=== PATIENT | male | born 1995 | race Caucasian/White ===

== ENCOUNTER 2017-05-07 07:25 | Emergency (ER) | payer OTHER ==
[2017-05-07 07:30] VITALS: BP 123/84; PULSE 61; RESP 16; TEMP 97.9; O2SAT 96
--- NOTE | 2017-05-07 08:33 | EDPHY ---
H & P Time Seen by Provider: 05/07/17 08:06 HPI/ROS: CHIEF COMPLAINT: medication refill HISTORY OF PRESENT ILLNESS: 21-year-old otherwise healthy male presents to the emergency department with his mother requesting a refill of his pain medications. Patient had a rhinoplasty and septoplasty 4 days ago at an outside hospital in [place]. He was given a prescription for 5 mg oxycodone that he ran out of yesterday. The patient has not been taking any ibuprofen or acetaminophen on top of this. He denies fevers, chills, bleeding, nausea or vomiting. He has an appointment with his surgeon in 4 days. Smoking Status: Never smoked Physical Exam: GEN: Awake, alert, oriented, no acute distress HEENT: Nasal splint in place, no septal hematoma, no bleeding RESP: nl resp effort MSK: Normal appearing SKIN: Normal appearing Constitutional: Initial Vital Signs Temperature (C) 36.6 C 05/07/17 07:26 Heart Rate 61 05/07/17 07:26 Respiratory Rate 16 05/07/17 07:26 Blood Pressure 123/84 H 05/07/17 07:26 O2 Sat (%) 96 05/07/17 07:26 O2 Delivery Mode Room Air Allergies/Adverse Reactions: No Known Allergies Allergy (Unverified 05/07/17 07:30) Home Medications: Medication Instructions Recorded LORazepam [Ativan (*)] 1 mg PO 05/07/17 oxyCODONE IR [Oxycodone Ir (*)] 5 mg PO 05/07/17 oxyCODONE IR [Oxycodone Ir (*)] 5 mg PO Q4-6PRN PRN #12 tab 05/07/17 MDM/Departure - Depart Disposition: Home, Routine, Self-Care Clinical Impression: Medication refill Condition: Good Instructions: Oxycodone, Rapid Release (By mouth) Additional Instructions: Take 600mg of ibuprofen every 8 hours with food. You can also take 650mg of Tylenol every 8 hours. Alternate these every 4 hours. Take 5mg of oxycodone every 4 hours as needed for severe pain. Only take the oxycodone if needed and for the shortest duration possible. Follow up with your surgeon as scheduled. I would follow the following medication schedule- 9am- 600mg ibuprofen (advil, motrin) 1pm- 650mg acetaminophen (tylenol) 5pm- 600mg ibuprofen 9pm- 650mg acetaminophen Take the above on a schedule then add the oxycodone IF NEEDED. Prescriptions: oxyCODONE IR [Oxycodone Ir (*)] 5 mg PO Q4-6PRN PRN #12 tab PRN Reason: Pain, Severe Referrals: GURDEEP ROGERS [Other] - Follow Up Only If Needed
== END 2017-05-07 08:41 | disposition home or self-care (01) ==
DX: Z76.0 Encounter for issue of repeat prescription (principal)

== ENCOUNTER 2018-10-15 16:13 | Emergency (ER) | payer OTHER ==
--- NOTE | 2018-10-15 16:26 | EDPHY ---
H & P Time Seen by Provider: 10/15/18 16:25 HPI/ROS: CHIEF COMPLAINT: Chest pain palpitations x1 month HISTORY OF PRESENT ILLNESS: 22-year-old male via private vehicle complaining of chest pain, palpitations, dyspnea for the past 1 month. History of anxiety for which he is on Lexapro which he has been off over for 1 week but has refilled prescription picked up earlier today. He used cocaine over [place] but none recently. He is concerned because his father of an [place] at age 51. The patient denies: Chest pain with exertion, dyspnea with exertion, syncope or new CR syncope, hemoptysis, immobilization, surgery with past 4 weeks, bilateral or unilateral leg swelling REVIEW OF SYSTEMS: 10 systems reviewed and negative with the exception of the elements mentioned in the history of present illness PAST MEDICAL & SURGICAL HISTORY: anxiety SOCIAL HISTORY:cocaine use over 2018 however none since. No tobacco abuse. FAMILY HISTORY: father of [place] at age 51 PHYSICAL EXAM (Prior to examination, patient consented to physical exam, hands were washed and my usual and customary physical exam procedures followed) 1) GENERAL: Well-developed, well-nourished, alert and oriented. Appears anxious. 2) HEAD: Normocephalic, atraumatic 3) HEENT: Pupils equal, round, reactive to light bilaterally. Sclera anicteric. Nasopharynx, oropharynx, clear, no lesions. Moist Mucous membranes. 4) NECK: Full range of motion, no meningeal signs. 5) LUNGS: Clear auscultation bilaterally, no wheezes, no rhonchi, no retractions. Chest wall nontender 6) HEART: Regular rate and rhythm, no murmur, no heave, no gallop. 7) ABDOMEN: No guarding, no rebound, no focal tenderness, negative McBurney's, negative Hines's, negative Rovsing's, negative peritoneal sign, negative Homans no palpable cord 8) MUSCULOSKELETAL: Moving all extremities, no focal areas of tenderness, no obvious trauma. No peripheral edema or discoloration. 9) BACK: No CVA tenderness, no midline vertebral tenderness, no fluctuance, no step-off, no obvious trauma, no visual or palpable abnormality. 10) SKIN: No rash, no petechiae. 11) Psychiatric: Patient is oriented X 3, there is no agitation. DIFFERENTIAL DIAGNOSIS: In no particular order, including but not limited to myocardial ischemia, pulmonary embolus, chest wall pain, pleural inflammation and pulmonary infectious causes. - Medical/Surgical History Other PMH: anxiety - Social History Smoking Status: Never smoked Constitutional: Initial Vital Signs Temperature (C) 36.8 C 10/15/18 16:26 Heart Rate 104 H 10/15/18 16:26 Respiratory Rate 16 10/15/18 16:26 Blood Pressure 149/81 H 10/15/18 16:26 O2 Sat (%) 96 10/15/18 16:26 O2 Delivery Mode Room Air Allergies/Adverse Reactions: No Known Allergies Allergy (Unverified 05/07/17 07:30) Home Medications: Medication Instructions Recorded Clonazepam 10/15/18 Lexapro 10/15/18 Propranolol HCl 10/15/18 clonazePAM [Clonazepam] 0.5 mg PO Q8 PRN #5 tablet 10/15/18 Medical Decision Making - Diagnostics Imaging Results: Imaging Impressions Chest X-Ray 10/15/18 16:34 Impression: No acute findings in the chest. Images reviewed myself ED Course/Re-evaluation: 4:35 p.m.: Will obtain diagnostic studies including D-dimer as the patient has a non negative perc score (he is tachycardic at 1:06 a.m.). 5:20 p.m.: Patient receiving IV fluids, noted to have an elevated BUN creatinine ratio of 29. No nausea or vomiting. Awaiting further diagnostic results. 5:39 p.m.: Patient re-evaluated by myself at this time. Discussed his diagnostic results, negative D-dimer which I think adequately excludes pulmonary embolus in this patient with a moderate pretest suspicion. I Do not think that CT angiography indicated at this time. In addition, patient has a low risk heart pathway score. Doubt TX. Plan will be discharge. Today is Monday. He has an appoint with his psychiatrist on Monday, requests 2 day refill of his clonazepam 0.5 mg which I provided to him and recommended he discuss any further refills with his psychiatrist. Feels comfortable being discharged. Given my usual and customary discharge precautions instructions. Care of patient under supervision of secondary supervising physician Dr Wade . - Data Points Laboratory Results: Laboratory Results 10/15/18 16:45 10/15/18 16:45 10/15/18 10/15/18 10/15/18 16:50 16:45 16:45 WBC RBC Hgb Hct MCV MCH MCHC RDW Plt Count MPV Neut % (Auto) Lymph % (Auto) Major % (Auto) Eos % (Auto) Baso % (Auto) Nucleat RBC Rel Count Absolute Neuts (auto) Absolute Lymphs (auto) Absolute Monos (auto) Absolute Eos (auto) Absolute Basos (auto) Absolute Nucleated RBC Immature Gran % Immature Gran # D-Dimer < 0.27 ug/mLFEU ug/mLFEU (0.00-0.50) Sodium 137 mEq/L mEq/L (135-145) Potassium 4.3 mEq/L mEq/L (3.5-5.2) Chloride 104 mEq/L mEq/L (97-110) Carbon Dioxide 24 mEq/l mEq/l (22-31) Anion Gap 9 mEq/L mEq/L (6-14) BUN 29 mg/dL H mg/dL (7-23) Creatinine 1.0 mg/dL mg/dL (0.7-1.3) Estimated GFR > 60 Glucose 93 mg/dL mg/dL (70-100) Calcium 9.5 mg/dL mg/dL (8.5-10.4) POC Troponin I 0.00 ng/mL ng/mL (0.00-0.08) 10/15/18 16:45 WBC 6.00 10^3/uL 10^3/uL (3.80-9.50) RBC 5.44 10^6/uL 10^6/uL (4.40-6.38) Hgb 16.9 g/dL g/dL (13.7-17.5) Hct 47.8 % % (40.0-51.0) MCV 87.9 fL fL (81.5-99.8) MCH 31.1 pg pg (27.9-34.1) MCHC 35.4 g/dL g/dL (32.4-36.7) RDW 12.2 % % (11.5-15.2) Plt Count 202 10^3/uL 10^3/uL (150-400) MPV 10.7 fL fL (8.7-11.7) Neut % (Auto) 71.7 % % (39.3-74.2) Lymph % (Auto) 17.7 % % (15.0-45.0) Major % (Auto) 8.2 % % (4.5-13.0) Eos % (Auto) 1.5 % % (0.6-7.6) Baso % (Auto) 0.7 % % (0.3-1.7) Nucleat RBC Rel Count 0.0 % % (0.0-0.2) Absolute Neuts (auto) 4.31 10^3/uL 10^3/uL (1.70-6.50) Absolute Lymphs (auto) 1.06 10^3/uL 10^3/uL (1.00-3.00) Absolute Monos (auto) 0.49 10^3/uL 10^3/uL (0.30-0.80) Absolute Eos (auto) 0.09 10^3/uL 10^3/uL (0.03-0.40) Absolute Basos (auto) 0.04 10^3/uL 10^3/uL (0.02-0.10) Absolute Nucleated RBC 0.00 10^3/uL 10^3/uL (0-0.01) Immature Gran % 0.2 % % (0.0-1.1) Immature Gran # 0.01 10^3/uL 10^3/uL (0.00-0.10) D-Dimer Sodium Potassium Chloride Carbon Dioxide Anion Gap BUN Creatinine Estimated GFR Glucose Calcium POC Troponin I Medications Given: Discontinued Medications Sodium Chloride (Ns) 1,000 mls @ 0 mls/hr IV ONCE ONE PRN Reason: Wide Open Stop: 10/15/18 16:35 Last Admin: 10/15/18 17:01 Dose: 1,000 mls Lorazepam (Ativan Injection) 1 mg IVP EDNOW ONE Stop: 10/15/18 16:38 Last Admin: 10/15/18 17:01 Dose: 1 mg Point of Care Test Results: Chemistry 10/15/18 16:50 POC Troponin I 0.00 ng/mL ng/mL (0.00-0.08) Departure - Departure Disposition: Home, Routine, Self-Care Clinical Impression: Heart palpitations Chest pain Qualifiers: Chest pain type: other chest pain Qualified Code(s): R07.89 - Other chest pain ; R07.8 - Other chest pain Dyspnea Qualifiers: Dyspnea type: other forms of dyspnea Qualified Code(s): R06.09 - Other forms of dyspnea Condition: Good Instructions: Dyspnea (ED) Additional Instructions: Seek medical attention if you develop new or worsening chest pain, if you develop new or worsening shortness of breath, or any other symptoms that concern you. Referrals: Jeovanny Vernon MD [Medical Doctor] - 5-7 days, call for appt. Keep, your appointment with your psychiatrist this Monday [Other] - As per Instructions Prescriptions: clonazePAM [Clonazepam] 0.5 mg PO Q8 PRN #5 tablet PRN Reason: Anxiety
[2018-10-15] MEDS ORDERED: NS 1,000 ML IV ONE ×2 (16:34→17:22)
[2018-10-15] MEDS ORDERED: LORazepam 2 MG/ML INJ IVP ONE (16:37)
[2018-10-15 17:09] LABS: PLATELET COUNT 202 10^3/uL (150-400)
[2018-10-15 17:53] VITALS: BP 112/66
--- NOTE | 2018-10-17 18:12 | CPEKG ---
Test Reason : OPEN Blood Pressure : / mmHG Vent. Rate : 098 BPM Atrial Rate : 099 BPM P-R Int : 160 ms QRS Dur : 082 ms QT Int : 318 ms P-R-T Axes : 064 089 026 degrees QTc Int : 406 ms Sinus rhythm Confirmed by Valerie Bermudez ([id number]) on 10/17/2018 6:11:28 PM Referred By: Abhijit Wade Confirmed By:Valerie Bermudez
== END 2018-10-15 18:02 | disposition home or self-care (01) ==
DX: R07.9 Chest pain, unspecified (principal); R00.2 Palpitations; R06.9 Unspecified abnormalities of breathing
CPT/HCPCS: 84484-ER; 96374; J2060